=== PATIENT | male | born 1950 | race Asian ===

== ENCOUNTER 2022-01-26 07:02 | Inpatient (IN) | payer OTHER, MEDICARE ==
[~2022-01-26] VITALS: Ht 165.1 cm; Wt 88.4 kg
[2022-01-26] VITALS (12 sets, daily range): BP systolic 110–156; BP diastolic 45–90
[~2022-01-26 07:02] MED LIST: ALPR-707 PO; AMLO-258 PO; ATEN-72 PO; CHOL100018 PO; CLON0.2T2 PO; FOLI-130 PO; [UNRECOGNIZED DRUG - CODE] PO
[2022-01-26] MEDS ORDERED: ASPIRIN 81 MG CHEWABLE TABLET ONE (07:11)
[2022-01-26] MEDS ORDERED: ATORVASTATIN CALCIUM 40 MG TABLET ONE (07:12)
[2022-01-26] MEDS ORDERED: HEPARIN SODIUM,PORCINE 5,000 UNITS/ML VIAL ONE (07:12)
[2022-01-26] MEDS ORDERED: HEPARIN SODIUM 1000 UNITS/NS 1,000 ML ONE (07:14)
[2022-01-26] MEDS ORDERED: LIDOCAINE/PF 1% 30 ML VIAL ONE (07:14)
[2022-01-26] MEDS ORDERED: NITROGLYCERIN 50 MG/D5% WATER 250 ML ONE (07:14)
[2022-01-26] MEDS ORDERED: SODIUM BICARBONATE 50 MEQ/50 ML VIAL ONE (07:14)
[2022-01-26] MEDS ORDERED: VERAPAMIL HCL 2.5 MG/ML 2 ML VIAL ONE (07:14)
[2022-01-26] MEDS ORDERED: IOHEXOL 300 MG/ML 100 ML VIAL ONE (07:14)
[2022-01-26] MEDS ORDERED: ASPIRIN 81 MG CHEWABLE TABLET PO ONE (07:15)
[2022-01-26] MEDS ORDERED: ATORVASTATIN CALCIUM 40 MG TABLET PO ONE (07:15)
[2022-01-26] MEDS ORDERED: HEPARIN SODIUM,PORCINE 5,000 UNITS/ML VIAL IVP ONE (07:15)
[2022-01-26] MEDS ORDERED: MORPHINE SULFATE 4 MG/ML SYRINGE IVP ONE (07:30)
[2022-01-26] MEDS ORDERED: ONDANSETRON HCL 4 MG/2 ML VIAL IVP ONE (07:30)
[2022-01-26 07:34] LABS: BASOPHILS % (AUTO) 0.3 % (0.0-2.0); EOSINOPHILS % (AUTO) 0.2 % (1.0-6.0); HEMATOCRIT 47.4 % (41-53); HEMOGLOBIN 16.1 g/dL (13.5-17.5); LYMPHOCYTES # (AUTO) 0.7 K/uL (1.0-4.8); LYMPHOCYTES % (AUTO) 7.2 % (22.0-44.0); MEAN CORPUSCULAR HEMOGLOBIN 32.1 pg (26.0-34.0); MEAN CORPUSCULAR HGB CONC 33.9 G/dL (31.0-37.0); MEAN CORPUSCULAR VOLUME 95 fL (80-100); MONOCYTES # (AUTO) 0.3 K/uL (0.1-1.0); MONOCYTES % (AUTO) 3.4 % (2.0-9.0); NEUTROPHILS # (AUTO) 8.8 K/uL (1.8-7.7); PLATELET COUNT (AUTO) 194 K/uL (150-450)
[2022-01-26 07:38] LABS: NEUTROPHILS % (AUTO) 88.9 % (40.0-70.0)
[2022-01-26 07:42] LABS: CALCIUM, TOTAL 10.2 mg/dL (8.8-10.5); CREATININE 1.36 mg/dL (0.60-1.30); POTASSIUM 3.8 mmol/L (3.5-5.1)
[2022-01-26] MEDS ORDERED: MIDAZOLAM HCL 2 MG/2 ML VIAL IVP ONE ×2 (07:45→08:45)
[2022-01-26] MEDS ORDERED: FentaNYL CITRATE PF 100 MCG/2 ML VIAL IVP ONE ×2 (07:45→08:45)
[2022-01-26] MEDS ORDERED: SODIUM CHLORIDE 0.9% 500 ML IV ONE (07:45)
[2022-01-26] MEDS ORDERED: HEPARIN SODIUM 1000 UNITS/NS 1,000 ML IARTER ONE (07:45)
[2022-01-26] MEDS ORDERED: NITROGLYCERIN/D5W 50 MG/250 ML IV BOTTLE IARTER ONE (07:45)
[2022-01-26] MEDS ORDERED: IOHEXOL 300 MG/ML 100 ML VIAL ICOR ONE ×2 (07:45→08:15)
[2022-01-26] MEDS ORDERED: HEPARIN SODIUM,PORCINE 1,000 UNITS/ML 10 ML VIAL IARTER ONE (07:45)
[2022-01-26] MEDS ORDERED: LIDOCAINE 1% 30 ML/SOD BICARB 8.4% 4 ML SQ ONE (07:45)
[2022-01-26] MEDS ORDERED: VERAPAMIL HCL 2.5 MG/ML 2 ML VIAL IARTER ONE (07:45)
[2022-01-26] MEDS ORDERED: MIDAZOLAM HCL 2 MG/2 ML VIAL ONE (07:46)
[2022-01-26] MEDS ORDERED: FentaNYL CITRATE PF 100 MCG/2 ML VIAL ONE (07:46)
[2022-01-26 07:59] LABS: COVID AG,FIA SOURCE NASAL SWAB
[2022-01-26 08:05] LABS: INR 1.1 (0.9-1.1); PROTHROMBIN TIME 11.2 SEC (9.4-11.6)
[2022-01-26 08:07] LABS: ALBUMIN 3.8 g/dL (3.4-5.0); BILIRUBIN,TOTAL 0.7 mg/dL (0.1-1.0); TOTAL PROTEIN, SERUM 8.1 g/dL (6.4-8.2)
[2022-01-26] MEDS ORDERED: HEPARIN SODIUM,PORCINE 1,000 UNITS/ML 10 ML VIAL IVP ONE (08:15)
[2022-01-26] MEDS ORDERED: PHENYLEPHRINE HCL IN 0.9% NACL 400 MCG/10 ML SYRINGE IVP ONE (08:30)
[2022-01-26] MEDS ORDERED: NITROGLYCERIN 400 MCG/SUBLINGUAL SPRAY 4.9 GM BOTTLE SL ONE ×2 (08:56→09:00)
[2022-01-26] MEDS ORDERED: TICAGRELOR 90 MG TABLET PO ONE (09:00)
[2022-01-26] MEDS ORDERED: TICAGRELOR 90 MG TABLET ONE (09:03)
[2022-01-26] MEDS ORDERED: PANTOPRAZOLE SODIUM 40 MG/VIAL IVP SCH (09:15)
[2022-01-26] MEDS ORDERED: HydrALAZINE HCL 20 MG/ML VIAL IVP PRN (14:45)
[2022-01-26] MEDS ORDERED: ACETAMINOPHEN 325 MG TABLET PO PRN ×2 (15:00→16:00)
[2022-01-26] MEDS ORDERED: HYDROCODONE/ACETAMINOPHEN 5-325 MG TABLET PO PRN ×2 (15:00→16:00)
[2022-01-26] MEDS ORDERED: ONDANSETRON HCL 4 MG/2 ML VIAL IVP PRN ×2 (15:00→16:00)
[2022-01-26] MEDS: LOSARTAN POTASSIUM 25 MG TABLET PO SCH (15:13)
[2022-01-26] MEDS ORDERED: BISACODYL 10 MG RECTAL RECTAL SUPPOSITORY PR PRN (16:00)
[2022-01-26] MEDS ORDERED: MORPHINE SULFATE 2 MG/ML SYRINGE IVP PRN (16:00)
[2022-01-26] MEDS ORDERED: ZOLPIDEM TARTRATE 5 MG TABLET PO PRN (16:00)
[2022-01-26] MEDS ORDERED: MAGNESIUM HYDROXIDE SUSPENSION 30 ML UDCUP PO PRN (16:00)
[2022-01-26] MEDS: TICAGRELOR 90 MG TABLET PO SCH (21:17)
[2022-01-26] MEDS: METOPROLOL TARTRATE 25 MG TABLET PO SCH (21:17)
[2022-01-26] MEDS: DOCUSATE SODIUM 100 MG CAPSULE PO SCH (21:17)
[2022-01-27] VITALS (7 sets, daily range): BP systolic 81–162; BP diastolic 67–153
[2022-01-27 05:43] LABS: BASOPHILS % (AUTO) 0.1 % (0.0-2.0); EOSINOPHILS % (AUTO) 0.5 % (1.0-6.0); HEMATOCRIT 43.2 % (41-53); HEMOGLOBIN 14.5 g/dL (13.5-17.5); LYMPHOCYTES % (AUTO) 10.6 % (22.0-44.0); MEAN CORPUSCULAR HEMOGLOBIN 31.9 pg (26.0-34.0); MEAN CORPUSCULAR HGB CONC 33.7 G/dL (31.0-37.0); MEAN CORPUSCULAR VOLUME 95 fL (80-100); MONOCYTES # (AUTO) 0.6 K/uL (0.1-1.0); MONOCYTES % (AUTO) 6.8 % (2.0-9.0); NEUTROPHILS # (AUTO) 7.5 K/uL (1.8-7.7); PLATELET COUNT (AUTO) 181 K/uL (150-450); RED BLOOD CELL COUNT(AUTO) 4.56 MIL/uL (4.50-5.90); RED CELL DISTRIBUTION WIDTH 13.2 % (11.5-14.5)
[2022-01-27 05:59] LABS: CALCIUM, TOTAL 9.1 mg/dL (8.8-10.5); CREATININE 1.36 mg/dL (0.60-1.30); POTASSIUM 4.2 mmol/L (3.5-5.1)
[2022-01-27] MEDS: TICAGRELOR 90 MG TABLET PO SCH ×2 (08:24→20:03)
[2022-01-27] MEDS: PANTOPRAZOLE SODIUM 40 MG DR TABLET PO SCH (08:24)
[2022-01-27] MEDS: METOPROLOL TARTRATE 25 MG TABLET PO SCH ×2 (08:25→20:03)
[2022-01-27] MEDS: ASPIRIN 81 MG DR TABLET PO SCH (08:25)
[2022-01-27] MEDS: ATORVASTATIN CALCIUM 40 MG TABLET PO SCH (08:26)
[2022-01-27] MEDS: DOCUSATE SODIUM 100 MG CAPSULE PO SCH ×2 (08:29→20:03)
[2022-01-27] MEDS: LOSARTAN POTASSIUM 25 MG TABLET PO SCH (08:31)
[2022-01-27] MEDS ORDERED: LOSA-382 PO (11:43)
[2022-01-27] MEDS ORDERED: TAMS-13 PO (11:43)
[2022-01-27] MEDS ORDERED: FURO40TA5 PO (11:43)
[2022-01-27] MEDS ORDERED: ALLO100T50 PO (11:43)
[2022-01-27] MEDS ORDERED: BUSP7.5T7 PO (11:43)
[2022-01-27] MEDS ORDERED: POTA8CAP20 PO (11:43)
[2022-01-28] VITALS (8 sets, daily range): BP systolic 126–148; BP diastolic 66–85
[2022-01-28 06:44] LABS: BASOPHILS % (AUTO) 0.4 % (0.0-2.0); HEMOGLOBIN 14.4 g/dL (13.5-17.5); LYMPHOCYTES % (AUTO) 13.2 % (22.0-44.0); MEAN CORPUSCULAR HEMOGLOBIN 31.7 pg (26.0-34.0); MEAN CORPUSCULAR HGB CONC 33.4 G/dL (31.0-37.0); MEAN CORPUSCULAR VOLUME 95 fL (80-100); MONOCYTES # (AUTO) 0.5 K/uL (0.1-1.0); MONOCYTES % (AUTO) 7.5 % (2.0-9.0); NEUTROPHILS # (AUTO) 5.6 K/uL (1.8-7.7); NEUTROPHILS % (AUTO) 77.9 % (40.0-70.0); PLATELET COUNT (AUTO) 177 K/uL (150-450); RED BLOOD CELL COUNT(AUTO) 4.53 MIL/uL (4.50-5.90); RED CELL DISTRIBUTION WIDTH 12.9 % (11.5-14.5)
[2022-01-28 07:35] LABS: CALCIUM, TOTAL 8.7 mg/dL (8.8-10.5); CREATININE 1.41 mg/dL (0.60-1.30); POTASSIUM 4.1 mmol/L (3.5-5.1)
[2022-01-28] MEDS: METOPROLOL TARTRATE 25 MG TABLET PO SCH ×2 (08:31→21:32)
[2022-01-28] MEDS: TICAGRELOR 90 MG TABLET PO SCH ×2 (08:31→21:32)
[2022-01-28] MEDS: LOSARTAN POTASSIUM 25 MG TABLET PO SCH (08:31)
[2022-01-28] MEDS: DOCUSATE SODIUM 100 MG CAPSULE PO SCH ×2 (08:31→21:32)
[2022-01-28] MEDS: PANTOPRAZOLE SODIUM 40 MG DR TABLET PO SCH (08:31)
[2022-01-28] MEDS: ATORVASTATIN CALCIUM 40 MG TABLET PO SCH (08:31)
[2022-01-28] MEDS: ASPIRIN 81 MG DR TABLET PO SCH (08:32)
[2022-01-28] MEDS ORDERED: FAMO40TA7 PO (12:13)
[2022-01-28] MEDS ORDERED: CYCL10TA16 PO (12:13)
[2022-01-28] MEDS ORDERED: CHOL25TA4 PO (12:14)
[2022-01-28] MEDS: SODIUM CHLORIDE 0.9% 1,000 ML IV SCH (14:44)
[2022-01-29] MEDS: SODIUM CHLORIDE 0.9% 1,000 ML IV SCH (03:19)
[2022-01-29 04:10] VITALS: BP 143/95
[2022-01-29 07:13] LABS: BASOPHILS % (AUTO) 0.3 % (0.0-2.0); EOSINOPHILS % (AUTO) 1.3 % (1.0-6.0); HEMATOCRIT 41.5 % (41-53); HEMOGLOBIN 13.8 g/dL (13.5-17.5); LYMPHOCYTES # (AUTO) 0.8 K/uL (1.0-4.8); LYMPHOCYTES % (AUTO) 11.9 % (22.0-44.0); MEAN CORPUSCULAR HEMOGLOBIN 31.4 pg (26.0-34.0); MEAN CORPUSCULAR HGB CONC 33.3 G/dL (31.0-37.0); MEAN CORPUSCULAR VOLUME 94 fL (80-100); MONOCYTES # (AUTO) 0.5 K/uL (0.1-1.0); MONOCYTES % (AUTO) 7.1 % (2.0-9.0); NEUTROPHILS # (AUTO) 5.4 K/uL (1.8-7.7); NEUTROPHILS % (AUTO) 79.4 % (40.0-70.0); PLATELET COUNT (AUTO) 179 K/uL (150-450); RED CELL DISTRIBUTION WIDTH 12.5 % (11.5-14.5)
[2022-01-29 07:22] LABS: CALCIUM, TOTAL 8.7 mg/dL (8.8-10.5); CREATININE 1.22 mg/dL (0.60-1.30); POTASSIUM 4.5 mmol/L (3.5-5.1)
[2022-01-29 07:27] VITALS: BP 146/86
[2022-01-29] MEDS ORDERED: ASPI-1444 PO (07:35)
[2022-01-29] MEDS ORDERED: METO25 PO (07:35)
[2022-01-29] MEDS ORDERED: ATOR40TA71 PO ×2 (07:35→14:11)
[2022-01-29] MEDS ORDERED: TICA90TA PO (07:35)
[2022-01-29] MEDS ORDERED: PANT-31 PO (07:35)
[2022-01-29] MEDS ORDERED: LOSA25TA2 PO (07:35)
[2022-01-29] MEDS: PANTOPRAZOLE SODIUM 40 MG DR TABLET PO SCH (08:36)
[2022-01-29] MEDS: METOPROLOL TARTRATE 25 MG TABLET PO SCH (08:36)
[2022-01-29] MEDS: LOSARTAN POTASSIUM 25 MG TABLET PO SCH (08:36)
[2022-01-29] MEDS: ATORVASTATIN CALCIUM 40 MG TABLET PO SCH (08:36)
[2022-01-29] MEDS: DOCUSATE SODIUM 100 MG CAPSULE PO SCH (08:36)
[2022-01-29] MEDS: ASPIRIN 81 MG DR TABLET PO SCH (08:36)
[2022-01-29] MEDS: TICAGRELOR 90 MG TABLET PO SCH (08:36)
[2022-01-29] MEDS ORDERED: NITROGLYCERIN 0.4 MG SUBLINGUAL TABLET #25 SL PRN (09:45)
[2022-01-29] MEDS ORDERED: NITR0.4T52 SL (14:06)
== END 2022-01-29 16:40 | disposition home or self-care (01) | DRG 246 ==
LOC: EMS 07:02 → ICU 07:15 → 5S 01-27 17:20
PROVIDERS: ADMIT Internal Medicine; ATTEND Internal Medicine
PROC: 027137Z Dilation of Coronary Artery, Two Arteries with Four or More Drug-eluting Intraluminal Devices, Percutaneous Approach (ICD-10-PCS; principal; 2022-01-26)
PROC: B2111ZZ Fluoroscopy of Multiple Coronary Arteries using Low Osmolar Contrast (ICD-10-PCS; 2022-01-26)
PROC: 4A023N7 Measurement of Cardiac Sampling and Pressure, Left Heart, Percutaneous Approach (ICD-10-PCS; 2022-01-26)
DX: I21.19 ST elevation (STEMI) myocardial infarction involving other coronary artery of inferior wall (principal); N17.9 Acute kidney failure, unspecified; E55.9 Vitamin D deficiency, unspecified; E66.9 Obesity, unspecified; K21.9 Gastro-esophageal reflux disease without esophagitis; Z20.822 Contact with and (suspected) exposure to COVID-19; E78.00 Pure hypercholesterolemia, unspecified; I10 Essential (primary) hypertension; F41.9 Anxiety disorder, unspecified; Z68.32 Body mass index [BMI] 32.0-32.9, adult; Z79.02 Long term (current) use of antithrombotics/antiplatelets; Z79.899 Other long term (current) drug therapy
CPT/HCPCS: 37236; 71045; 80048; 80053; 80061; 82550; 83036; 83735; 83880; 84484; 85025; 85610; 85730; 92920; 92921; 92928; 93005; 93306; 99285; G0378; J0360; J1644; J2250; J2270; J2405; J3010; J3490; J7030; Q9967; 36415-L1; 36415-TC; Z7610

== ENCOUNTER → 2022-02-01 | Outpatient (CLI) | payer OTHER, MEDICARE ==
[~2022-02-01] VITALS: Ht 165.1 cm; Wt 87.6 kg
[~2022-02-01] MED LIST changes: +ALLO100T50 PO; -AMLO-258 PO; +ASPI-1444 PO; -ATEN-72 PO; +ATOR40TA71 PO; +BUSP7.5T7 PO; -CHOL100018 PO; +CHOL25TA4 PO; -CLON0.2T2 PO; +CYCL10TA16 PO; +FURO40TA5 PO; +LOSA25TA2 PO; +METO25 PO; +NITR0.4T52 SL; +PANT-31 PO; +POTA8CAP20 PO; +TAMS-13 PO; +TICA90TA PO; -[UNRECOGNIZED DRUG - CODE] PO
[2022-02-01 11:40] VITALS: BP 134/75
== END | disposition home or self-care (01) ==
LOC: SRCNTR 11:09
PROVIDERS: ATTEND Internal Medicine
DX: I25.10 Atherosclerotic heart disease of native coronary artery without angina pectoris (principal); I10 Essential (primary) hypertension; I25.2 Old myocardial infarction; K21.9 Gastro-esophageal reflux disease without esophagitis; Z95.5 Presence of coronary angioplasty implant and graft; Z79.899 Other long term (current) drug therapy
CPT/HCPCS: G0463; Z7500